=== PATIENT | female | born 1985 | race African-American/Black ===

== ENCOUNTER 2020-07-02 16:04 | Emergency (ER) | payer OTHER, MEDICAID ==
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
[2020-07-02 17:29] VITALS: BP 123/82
== END 2020-07-02 17:26 | disposition home or self-care (01) ==
LOC: ER 16:04
DX: S16.1XXA Strain of muscle, fascia and tendon at neck level, initial encounter (principal); S43.402A Unspecified sprain of left shoulder joint, initial encounter; S09.90XA Unspecified injury of head, initial encounter; R51.9 Headache, unspecified; H57.12 Ocular pain, left eye; M54.2 Cervicalgia; M25.512 Pain in left shoulder; V87.7XXA Person injured in collision between other specified motor vehicles (traffic), initial encounter; F17.200 Nicotine dependence, unspecified, uncomplicated
CPT/HCPCS: 70450; 72125; 99284